=== PATIENT | female | born 1980 | race Two or more races ===

== ENCOUNTER 2024-09-07 15:51 | Emergency (ER) | payer OTHER ==
[~2024-09-07] VITALS: Ht 165.1 cm; Wt 64.5 kg
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
[2024-09-07] MEDS ORDERED: CYCL-838 PO (17:20)
[2024-09-07] MEDS ORDERED: IBU600T PO (17:20)
[2024-09-07 18:03] VITALS: BP 104/68; PULSE 72; RESP 14; TEMP 98; O2SAT 99
== END 2024-09-07 18:05 | disposition home or self-care (01) ==
LOC: ER 15:51
DX: S20.212A Contusion of left front wall of thorax, initial encounter (principal); Z88.1 Allergy status to other antibiotic agents; V43.52XA Car driver injured in collision with other type car in traffic accident, initial encounter; Y93.I9 Activity, other involving external motion; Y92.488 Other paved roadways as the place of occurrence of the external cause; Y99.8 Other external cause status
CPT/HCPCS: 71101